=== PATIENT | female | born 2000 | race Caucasian/White ===

== ENCOUNTER 2019-03-31 17:47 | Emergency (ER) | payer OTHER ==
[~2019-03-31] VITALS: Ht 165.1 cm; Wt 60.0 kg
[2019-03-31 18:01] VITALS: BP 119/71; PULSE 74; TEMP 98.4
== END 2019-03-31 19:33 | disposition left against medical advice (07) ==
LOC: COL.ER 17:47
DX: G43.909 Migraine, unspecified, not intractable, without status migrainosus (principal)

== ENCOUNTER → 2019-06-04 | Outpatient (CLI) | payer OTHER | LOC: ZCOL.LAB 16:27 | DX: J02.9 Acute pharyngitis, unspecified (principal) ==

== ENCOUNTER 2020-05-26 05:48 | Emergency (ER) | payer OTHER ==
[~2020-05-26] VITALS: Ht 165.1 cm; Wt 59.1 kg
[2020-05-26 05:55] VITALS: BP 128/98; TEMP 97.4
[2020-05-26] MEDS ORDERED: PROZAC40 MG PO (06:15)
[2020-05-26] MEDS ORDERED: AMOXICILLIN 50500 MG PO (06:22)
[2020-05-26 06:35] VITALS: PULSE 88
== END 2020-05-26 06:37 | disposition home or self-care (01) ==
LOC: COL.ER 05:48
DX: J03.90 Acute tonsillitis, unspecified (principal); Z23 Encounter for immunization
CPT/HCPCS: J1100

== ENCOUNTER 2021-03-21 10:34 | Emergency (ER) | payer OTHER ==
[~2021-03-21] VITALS: Ht 165.1 cm; Wt 63.6 kg
[~2021-03-21 10:34] MED LIST: AMOXICILLIN 50500 MG PO; PROZAC40 MG PO
[2021-03-21 10:48] VITALS: BP 123/85; TEMP 98.6
[2021-03-21] MEDS ORDERED: KURVELO 30 MCG-1 TAB PO (11:40)
[2021-03-21 12:04] VITALS: PULSE 76
== END 2021-03-21 12:05 | disposition home or self-care (01) ==
LOC: COL.ER 10:34
DX: R51.9 Headache, unspecified (principal)
CPT/HCPCS: J1885